=== PATIENT | male | born 1965 | race African-American/Black ===

== ENCOUNTER 2017-03-02 16:04 | Emergency (ER) | payer MEDICAID ==
[~2017-03-02] VITALS: Ht 177.8 cm; Wt 90.0 kg
[~2017-03-02 16:04] MED LIST: LISI-604 PO; METFORMIN PO
[2017-03-02] MEDS ORDERED: HYDROCODONE/ACETAMINOPHEN 5/325MG TABLET PO ONE (20:30)
[2017-03-03 15:34] VITALS: BP 138/88
== END 2017-03-03 15:56 | disposition home or self-care (01) ==
LOC: ER 16:16
DX: S80.812A Abrasion, left lower leg, initial encounter (principal); L97.818 Non-pressure chronic ulcer of other part of right lower leg with other specified severity; I10 Essential (primary) hypertension; I25.2 Old myocardial infarction; E11.9 Type 2 diabetes mellitus without complications; Z79.84 Long term (current) use of oral hypoglycemic drugs; Z87.828 Personal history of other (healed) physical injury and trauma; Z86.73 Personal history of transient ischemic attack (TIA), and cerebral infarction without residual deficits; X58.XXXA Exposure to other specified factors, initial encounter; Y93.89 Activity, other specified; Y92.488 Other paved roadways as the place of occurrence of the external cause
CPT/HCPCS: 82962; 99283; A4217; Z7610